=== PATIENT | male | born 1975 | race Caucasian/White ===

== ENCOUNTER 2018-09-06 01:03 | Emergency (ER) | payer SELFPAY ==
[~2018-09-06] VITALS: Ht 177.8 cm; Wt 117.9 kg
[2018-09-06 01:05] VITALS: BP_SYST 160
[2018-09-06] MEDS ORDERED: LACTULOSE 20 GM/30 ML UDC PO ONE (01:30)
[2018-09-06] MEDS ORDERED: NA PHOS,M-B/NA PHOS,DI-BA 118 ML (FLEET ENEMA) RC ONE (02:00)
[2018-09-06 02:22] VITALS: BP_SYST 145
== END 2018-09-06 02:22 | disposition home or self-care (01) ==
LOC: SED 01:03
DX: K59.00 Constipation, unspecified (principal)
CPT/HCPCS: 74018; 99283